=== PATIENT | male | born 1975 | race Caucasian/White ===

== ENCOUNTER → 2016-11-18 | Day surgery (SDC) | payer BC ==
[2016-11-18] VITALS (13 sets, daily range): BP systolic 101–134; BP diastolic 50–83
[~2016-11-18] VITALS: Ht 182.9 cm; Wt 108.9 kg
[~2016-11-18] MED LIST: ATORVASTATIN CA20 MG ORAL; Alfentanil 2ml Inj ONE; Atropine Inj 1mg/10ml Syr IV PRN; BENAZEPRIL HCL20 MG ORAL; Bupivacaine w/Epi 0.25% 30ml Vial INJ ONE; Dexamethasone 4mg/ml vial ONE; DiphenhydrAMINE 50mg/ml Inj IVP PRN; EPINEPHrine 1mg/1ml Amp ONE; HYDROmorphone 1mg/ml Carpuject SUBQ PRN; Hydromorphone 0.5mg/0.5ml inj IVP PRN; Ketorolac 30mg Inj IV PRN; Ketorolac 60mg Inj IV PRN; LORazepam Inj 2mg/ml 1ml IV PRN; LR 1000ml 1,000 ML IVLG SCH; LR 1000ml ONE; Labetalol 5mg/ml 20ml vial IV PRN; Lidocaine 1% MPF 10mg/ml 5ml ONE; Meperidine 25mg/ml Inj IV PRN; Metoclopramide 10mg/2ml Inj IVP PRN; Midazolam 2mg/2ml Inj IVP PRN; Midazolam 2mg/2ml Inj ONE; Morphine Sulfate 2mg/ml Inj IVP PRN; NS Irrig 2000ml IRRIG ONE; NS Irrig 4000ml IRRIG ONE; Norco 5mg/325mg tab ORAL PRN; Norco 7.5mg/325mg tab ORAL PRN; Oxycodone/Acetaminophen 5-325 ORAL PRN; Propofol 10mg/ml 20ml IV ONE; fentaNYL 100 mcg/2 mL IV PRN
--- NOTE | 2016-11-18 06:40 | Pre-Procedure Note/Attestation ---
Pre-Procedure Note/Attestation Complete Prior to Procedure Planned Procedure: left Procedure Narrative: Left knee arthroscopy with debridement Indications for Procedure Pre-Operative Diagnosis: Left knee chondrosis Attestation I attest that I discussed the nature of the procedure; its benefits; risks and complications; and alternatives (and the risks and benefits of such alternatives ), prior to the procedure, with the patient (or the patient's legal sales and service representative). I attest that, if there was a reasonable possibility of needing a blood transfusion, the patient (or the patient's legal sales and service representative) was given the [facility] standardized written summary, pursuant to the Faustino Ken Blood Safety Act ([place] Health and Safety Code # 1645, as amended). I attest that I re-evaluated the patient just prior to the surgery and that there has been no change in the patient's H&P, except as documented below: JOSE SUN Nov 18, 2016 06:40
--- NOTE | 2016-11-18 06:43 | Brief Operative Note ---
Immediate Post Operative Note Operative Note Pre-op Diagnosis: Left knee chondrosis Procedure: Left knee arthroscopy with debridement Post-op Diagnosis: same as pre-op Findings: consistent w/pre-op dx studies Surgeon: Esteban Anesthesia: general Specimen: none Complications: none Condition: stable Estimated Blood Loss: none Drains: none Implant(s) used?: No JOSE SUN Nov 18, 2016 06:43
--- NOTE | 2016-11-18 06:50 | Anethesia Preoperative Eval ---
Anesthesia Pre-op PMH/ROS General Date of Evaluation: Nov 18, 2016 Time of Evaluation: 06:46 Anesthesiologist: Esteban ASA Score: ASA 3 Mallampati Score Class I : Soft palate, uvula, fauces, pillars visible Class II: Soft palate, uvula, fauces visible Class III: Soft palate, base of uvula visible Class IV: Only hard plate visible Mallampati Classification: Class II Surgeon: Esteban Diagnosis: L Knee Pain Surgical Procedure: L Knee Arthroscopy Anesthesia History: none Family History: no anesthesia problems Allergies: Coded Allergies: No Known Allergies (Unverified , 11/17/16) Medications: see eMAR Past Medical History Cardiovascular: Reports: HTN, other - HL Gastrointestinal/Genitourinary: Reports: GERD Musculoskeletal/Integumentary: 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 Exam Physician Exam Last Vital Signs Date Time Temp Pulse Resp B/P Pulse Ox O2 Delivery O2 Flow Rate FiO2 11/18/16 06:35 97.5 71 18 128/72 95 Room Air Constitutional: NAD Neurologic: CN 2-12 intact Cardiovascular: RRR Respiratory: CTA Gastrointestinal: S/NT/ND Airway Exam Mallampati Score: Class II MO: full ROM: full Teeth: intact Anesthesia Pre-op A/P Risk Assessment & Plan Assessment: ASA 3 Plan: GA, BIS Status Change Before Surgery: No Pre-Antibiotics Dru Ancef IV Given Within 1 Hr of Incision: Yes Time Given: 07:01 Carl Barker MD Nov 18, 2016 06:50
--- NOTE | 2016-11-18 06:51 | Immediate Post-Op Evaluation ---
Immediate Post-Op Evalulation Immediate Post-Op Evalulation Procedure: L Knee Arthroscopy Date of Evaluation: Nov 18, 2016 Time of Evaluation: 08:12 IV Fluids: 600 LR Blood Products: 0 Estimated Blood Loss: 12 Urinary Output: 0 Blood Pressure Systolic: 101 Blood Pressure Diastolic: 58 Pulse Rate: 67 Respiratory Rate: 16 O2 Sat by Pulse Oximetry: 97 Temperature (Fahrenheit): 97.1 Pain Score (1-10): 2 Nausea: No Vomiting: No Complications 0 Patient Status: awake, reacts, patent, extubated, none Hydration Status: adequate Dru Grams Ancef IV Given Within 1 Hr of Incision: Yes Time Given: 07:01 Carl Barker MD Nov 18, 2016 06:51
--- NOTE | 2016-11-18 06:52 | 48 Hour Post Anesthesia Eval ---
Post Anesthesia Evaluation Procedure: L Knee Arthroscopy Date of Evaluation: Nov 18, 2016 Time of Evaluation: 10:16 Blood Pressure Systolic: 123 0: 76 Pulse Rate: 63 Respiratory Rate: 18 Temperature (Fahrenheit): 98.2 O2 Sat by Pulse Oximetry: 97 Airway: patent Nausea: No Vomiting: No Pain Intensity: 2 Hydration Status: adequate Cardiopulmonary Status: Stable Mental Status/LOC: patient returned to baseline Follow-up Care/Observations: 0 Post-Anesthesia Complications: 0 Follow-up care needed: ready to discharge Carl Barker MD Nov 18, 2016 06:52
--- NOTE | 2016-11-18 10:07 | Operative Note - Dictated ---
DATE OF OPERATION: 11/18/2016 SURGEON: Byron Orellana M.D. 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 ANESTHESIA: General plus local. COMPLICATIONS: None. ANTIBIOTICS: Ancef. PREOPERATIVE DIAGNOSES: Left knee: 1. Trochlear chondrosis with loose edges. 2. Chondral loose body. POSTOPERATIVE DIAGNOSES: Left knee: 1. Trochlear chondrosis with loose edges. 2. Chondral loose body. PROCEDURE PERFORMED: LEFT KNEE ARTHROSCOPY WITH: 1. Loose body removal. 2. Trochlear debridement with microfracture. BACKGROUND: The patient is a 41-year-old otherwise healthy and active gentleman, who had significant pain in the left knee. An MRI confirmed the trochlear chondrosis. All risks, benefits, and alternatives to surgical intervention were discussed in great detail. Risks included, but were not limited to, bleeding, infection, neurovascular injury, need for additional surgical intervention, failure of pain relief, arthrofibrosis, complications of anesthesia, blood clots, stroke, heart attack, and potentially . He understood these risks, amongst others, and consent was signed. PROCEDURE IN DETAIL: The patient was brought into the operating room and placed supine on the operating room table. The left knee was correctly verified for surgical site and prepped and draped in standard sterile fashion. Examination under anesthesia revealed symmetric range of motion with the contralateral side and no effusion. There was no laxity. ANTEROLATERAL AND ANTEROMEDIAL PORTALS WERE MARKED AND INJECTED WITH 20 ML OF 0.25% MARCAINE WITH EPINEPHRINE. A DIAGNOSTIC ARTHROSCOPY WAS THEN UNDERTAKEN. IT REVEALED THE FOLLOWIN. Normal suprapatellar pouch. 2. Normal medial gutter. 3. Normal lateral gutter. 4. Grade 4 full-thickness chondrosis trochlea measuring 10 x 12 mm. 5. Normal patella. 6. Normal lateral compartment. 7. Normal lateral meniscus. 8. Normal anterior cruciate ligament. 9. Normal posterior cruciate ligament. 10. Normal medial meniscus. 11. Normal medial compartment. 12. Chondral loose body, medial compartment. The loose body in the medial compartment measured approximately 1 cm was removed. Attention was then turned to the trochlea after probe examination of all other normal structures. The edges of the chondrosis were loose and a 4.5 mm shaver was used to debride the edges to a stable border. An up biter was then used to contour the edge of the normal cartilage such that no additional delamination injury would occur. It was tested with a probe. The calcified layer was scraped using a curette and microfracture technique performed. Excellent marrow derivative was visualized coming from the microfracture holes. All fluid and debris were evacuated from the knee. A 10 mL of 0.25% Marcaine with epinephrine were injected. The wounds were copiously irrigated and reapproximated using 4-0 Monocryl in a subcuticular fashion. Steri-Strips were used over Mastisol. A dry sterile dressing was applied. A compressive stocking was fitted. There were no complications. I attest that I performed the entire operation. He was then taken to recovery in good condition. Byron Orellana M.D. DR: YEN JOB#: [id number] CC: ROMA
== END | disposition home or self-care (01) ==
LOC: SUR 06:07
DX: M94.8X6 Other specified disorders of cartilage, lower leg (principal); M23.42 Loose body in knee, left knee; K21.9 Gastro-esophageal reflux disease without esophagitis; I10 Essential (primary) hypertension; E78.5 Hyperlipidemia, unspecified; E66.9 Obesity, unspecified; Z68.33 Body mass index [BMI] 33.0-33.9, adult
CPT/HCPCS: 29879; J0171; J0690; J1100; J2250; J2405; J2704; J3490; J7120; 94003; 94150